=== PATIENT | male | born 1960 | race Caucasian/White ===

== ENCOUNTER 2022-02-18 10:52 | Emergency (ER) | payer MEDICARE, MEDICAID ==
[~2022-02-18] VITALS: Ht 177.8 cm; Wt 136.4 kg
[2022-02-18 11:54] LABS: BASOPHILS # (AUTO) 0.1 X10'3 (0-0.2); BASOPHILS % (AUTO) 1.2 % (0-1); EOSINOPHILS # (AUTO) 0.1 X10'3 (0-0.9); EOSINOPHILS % (AUTO) 1.1 % (0-6); HEMOGLOBIN 17.2 g/dl (14.0-17.9); LYMPHOCYTES # (AUTO) 1.9 X10'3 (1.1-4.8); LYMPHOCYTES % (AUTO) 19.7 % (21-51); MEAN CORPUSCULAR HEMOGLOBIN 29.5 PG (27.0-31.0); MEAN CORPUSCULAR HGB CONC 34.4 g/dL (33.0-36.5); MEAN CORPUSCULAR VOLUME 85.8 FL (78-98); MONOCYTES # (AUTO) 0.8 X10'3 (0-0.9); MONOCYTES % (AUTO) 7.7 % (2-12); NEUTROPHILS # (AUTO) 6.8 X10'3 (1.8-7.7); NEUTROPHILS % (AUTO) 70.3 % (42-75); PLATELET COUNT 295 X10'3 (140-440); RED BLOOD COUNT 5.83 X10'6 (4.70-6.10); WHITE BLOOD COUNT 9.7 X10'3 (4.5-11.0)
[2022-02-18 12:11] LABS: ALANINE AMINOTRANSFERASE 20 U/L (12-78); ALBUMIN 3.4 G/DL (3.4-5.0); ALBUMIN/GLOBULIN RATIO 0.7 (1.1-1.5); ALKALINE PHOSPHATASE 79 IU/L (46-116); ANION GAP 7 (8-16); ASPARTATE AMINO TRANSFERASE 19 U/L (10-37); BILIRUBIN,TOTAL 0.4 MG/DL (0.1-1.0); BLOOD UREA NITROGEN 12 MG/DL (7-18); BUN/CREATININE RATIO 8.9 (5.4-32.0); CALCIUM 9.1 MG/DL (8.5-10.1); CHLORIDE 102 MMOL/L (99-107); CREATININE 1.35 MG/DL (0.60-1.10); GLUCOSE 99 MG/DL (70-104); POTASSIUM 4.1 MMOL/L (3.5-5.1); SODIUM 137 MMOL/L (135-145); TOTAL CARBON DIOXIDE 28.1 MMOL/L (24-32); TOTAL PROTEIN 8.4 G/DL (6.4-8.2); eGFR 54 ML/MIN
[2022-02-18] MEDS ORDERED: hydrALAZINE 20mg/ml inj. IV ONE (13:15)
[2022-02-18] MEDS ORDERED: amLODIPine 5mg tablet PO ONE (13:15)
[2022-02-18] MEDS ORDERED: AMLO10TA PO (13:21)
[2022-02-18] MEDS ORDERED: ALBU8.5H17 INH (13:21)
--- NOTE | 2022-02-18 14:03 | NUR ---
PROVIDER NOTIFIED OF PT'S CURRENT BP. PER DR DAVID, PT IS NOT IN A HYPERTENSIVE CRISIS AND CAN BE DC.
[2022-02-18 14:16] VITALS: BP 194/133
--- NOTE | 2022-02-18 14:22 | NUR ---
Pt d/c home via w/c with his nurse in stable condition, instructions and prescription given, pt verbalized understanding.
== END 2022-02-18 14:32 | disposition home or self-care (01) ==
LOC: ER 10:54
DX: I10 Essential (primary) hypertension (principal); Z88.0 Allergy status to penicillin
CPT/HCPCS: 36415; 71045; 80053; 83880; 84484; 85025; 93005; 96374; 99285; J0360

== ENCOUNTER 2023-12-22 10:09 | Emergency (ER) | payer MEDICARE, MEDICAID ==
[~2023-12-22] VITALS: Ht 182.9 cm; Wt 138.0 kg
[~2023-12-22 10:09] MED LIST: ALBU8.5H17 INH; AMLO10TA PO; LEVO-65 PO
[2023-12-22 10:41] VITALS: PULSE 89; RESP 22; TEMP 98.6; O2SAT 93
[2023-12-22] MEDS: albuterol 2.5 MG/3 ML nebule CONTNEB PRN (10:41)
[2023-12-22 10:56] LABS: BASOPHILS # (AUTO) 0.1 X10'3 (0-0.2); BASOPHILS % (AUTO) 0.7 % (0-1); EOSINOPHILS % (AUTO) 0.1 % (0-6); HEMOGLOBIN 17.2 g/dl (14.0-17.9); LYMPHOCYTES # (AUTO) 1.5 X10'3 (1.1-4.8); LYMPHOCYTES % (AUTO) 13.2 % (21-51); MEAN CORPUSCULAR HEMOGLOBIN 29.4 PG (27.0-31.0); MEAN CORPUSCULAR HGB CONC 33.7 g/dL (33.0-36.5); MEAN CORPUSCULAR VOLUME 87.3 FL (78-98); MEAN PLATELET VOLUME 9.4 FL (7.4-10.4); MONOCYTES # (AUTO) 0.7 X10'3 (0-0.9); PLATELET COUNT 237 X10'3 (140-440); RED BLOOD COUNT 5.84 X10'6 (4.70-6.10); RED CELL DISTRIBUTION WIDTH 14.5 % (11.5-14.5); WHITE BLOOD COUNT 11.3 X10'3 (4.5-11.0)
[2023-12-22] MEDS: methylPREDNISolone sod succ 125mg/2ml vial IV ONE (11:01)
[2023-12-22 11:22] LABS: ALBUMIN 3.3 G/DL (3.4-5.0); ANION GAP 7 (8-16); BLOOD UREA NITROGEN 18 MG/DL (7-18); BUN/CREATININE RATIO 16.2 (10.0-20.0); CALCIUM 9.3 MG/DL (8.5-10.1); CHLORIDE 100 MMOL/L (99-107); CREATININE 1.11 MG/DL (0.60-1.10); GLUCOSE 136 MG/DL (70-104); POTASSIUM 3.3 MMOL/L (3.5-5.1); PRO BRAIN NATRIURETIC PEPTIDE 351 PG/ML (0-125); SODIUM 138 MMOL/L (135-145); TOTAL CARBON DIOXIDE 31.4 MMOL/L (24-32); eCRCL 76 ML/MIN; eGFR 67 ML/MIN
[2023-12-22 11:45] VITALS: PULSE 100; RESP 22; O2SAT 96
[2023-12-22] MEDS: hydrALAZINE 20mg/ml inj. IV ONE (12:36)
[2023-12-22 12:52] VITALS: BP 179/118; PULSE 99; RESP 22; O2SAT 93
[2023-12-22] MEDS: amLODIPine 5mg tablet PO ONE (12:52)
[2023-12-22 13:22] LABS: APTT 30 SECONDS (22-32); INR 1.1 INR; PROTHROMBIN TIME 11.6 SECONDS (9.0-12.0)
[2023-12-22 13:48] LABS: CKMB RELATIVE INDEX 0.9 RATIO (0-2.5)
== END 2023-12-22 12:55 | disposition short-term general hospital (02) ==
LOC: ER 10:09
DX: I61.9 Nontraumatic intracerebral hemorrhage, unspecified (principal); J44.1 Chronic obstructive pulmonary disease with (acute) exacerbation; R41.0 Disorientation, unspecified; I10 Essential (primary) hypertension; F17.200 Nicotine dependence, unspecified, uncomplicated; Z88.0 Allergy status to penicillin; Z79.899 Other long term (current) drug therapy
CPT/HCPCS: 36415; 70450; 71045; 80048; 82550; 82553; 83874; 83880; 84484; 85025; 85610; 85730; 93005; 94640; 94644; 96374; 96375; 99291; J0360; J2919; 94760; A7015